=== PATIENT | female | born 1980 | race Caucasian/White ===

== ENCOUNTER 2017-04-03 17:03 | Emergency (ER) | payer SELFPAY ==
[~2017-04-03] VITALS: Ht 162.6 cm; Wt 73.3 kg
[2017-04-03 17:15] VITALS: BP 130/86
[2017-04-03] MEDS ORDERED: ONDANSETRON ODT 4 MG PO ONE (18:00)
[2017-04-03] MEDS ORDERED: ONDANSETRON ODT 4 MG ONE (18:00)
[2017-04-03] MEDS ORDERED: OXYcodone/APAP 5/325MG TABLET PO ONE (18:00)
[2017-04-03] MEDS ORDERED: OXYcodone/APAP 5/325MG TABLET ONE (18:00)
[2017-04-03] MEDS ORDERED: DIAZEPAM 5 MG TABLET ONE (18:48)
[2017-04-03] MEDS ORDERED: DIAZEPAM 5 MG TABLET PO ONE (19:00)
== END 2017-04-03 19:20 | disposition home or self-care (01) ==
LOC: ED 19:00
DX: S30.0XXA Contusion of lower back and pelvis, initial encounter (principal); S70.02XA Contusion of left hip, initial encounter; Z88.1 Allergy status to other antibiotic agents; Z88.5 Allergy status to narcotic agent; Z88.6 Allergy status to analgesic agent; W10.9XXA Fall (on) (from) unspecified stairs and steps, initial encounter; Y93.89 Activity, other specified; Y92.098 Other place in other non-institutional residence as the place of occurrence of the external cause; Y99.8 Other external cause status
CPT/HCPCS: 72072; 72110; 73502; 99284; Q0162